=== PATIENT | male | born 1995 ===

== ENCOUNTER 2019-08-01 14:59 | Emergency (ER) | payer MEDICAID ==
[~2019-08-01] VITALS: Ht 172.7 cm; Wt 68.0 kg
[2019-08-01 15:21] VITALS: BP 131/72
[2019-08-01 16:26] LABS: ANION GAP 6 mmol/L (5-15); BLOOD UREA NITROGEN 16 mg/dL (7-18); CALCIUM 9.2 MG/DL (8.5-10.1); CARBON DIOXIDE 28 MMOL/L (21-32); CHLORIDE 103 MMOL/L (98-107); CREATININE 0.9 MG/DL (0.55-1.30); POTASSIUM 4.9 MMOL/L (3.5-5.1); SODIUM 137 MMOL/L (136-145)
[2019-08-01 16:29] LABS: BASOPHILS % (AUTO) 0.9 % (0.0-2.0); EOSINOPHILS % (AUTO) 1.5 % (0.0-3.0); HEMATOCRIT 43.3 % (42.0-52.0); HEMOGLOBIN 15.8 G/DL (14.2-18.0); LYMPHOCYTES % (AUTO) 38.2 % (20.0-45.0); MEAN CORPUSCULAR VOLUME 82 FL (80-99); MONOCYTES % (AUTO) 13.4 % (1.0-10.0); PLATELET COUNT 298 K/UL (150-450); RED BLOOD COUNT 5.25 M/UL (4.70-6.10); RED CELL DISTRIBUTION WIDTH 9.5 % (11.6-14.8); WHITE BLOOD COUNT 8.1 K/UL (4.8-10.8)
[2019-08-01 16:30] LABS: ALANINE AMINOTRANSFERASE 58 U/L (12-78); ALBUMIN 3.9 G/DL (3.4-5.0); ALBUMIN/GLOBULIN RATIO 1.1 (1.0-2.7); ALKALINE PHOSPHATASE 77 U/L (46-116); ASPARTATE AMINO TRANSFERASE 25 U/L (15-37); BILIRUBIN,TOTAL 0.7 MG/DL (0.2-1.0)
--- NOTE | 2019-08-01 16:45 | Emergency Room Report ---
History of Present Illness General Chief Complaint: Skin Rash/Abscess Source: Patient Present Illness HPI 23-year-old male presents with pain to his right fifth digit after spilling crystal meth onto it 3 days ago. His right third digit is mildly affected as well. He reports that he has been to 3 different ERs and has been given antibiotics, unsure of which antibiotic, but the swelling is getting worse. He denies any fever or vomiting. He admits to last using crystal meth earlier today. Allergies: Coded Allergies: No Known Allergies (Unverified , 08/01/19) Patient History Past Medical History: see triage record Reviewed Nursing Documentation: PMH: Agreed; PSxH: Agreed Nursing Documentation-PMH Past Medical History: No History, Except For Review of Systems All Other Systems: negative except mentioned in HPI Physical Exam Vital Signs Date Time Temp Pulse Resp B/P (MAP) Pulse Ox O2 Delivery O2 Flow Rate FiO2 08/01/19 15:10 97.9 78 19 131/72 (91) 99 Room Air Sp02 EP Interpretation: reviewed, normal General Appearance: no apparent distress, alert, GCS 15, non-toxic Head: normocephalic, atraumatic ENT: hearing grossly normal, normal voice Neck: full range of motion, supple/symm/no masses Respiratory: lungs clear, normal breath sounds, speaking full sentences Cardiovascular #1: regular rate, rhythm Cardiovascular #2: 2+ radial (R), 2+ radial (L) Musculoskeletal: normal range of motion, gait/station normal, other Neurologic: alert, motor strength/tone normal, oriented x3, sensory intact, responsive, speech normal Psychiatric: judgement/insight normal, mood/affect normal Skin: other - erythema and swelling to the right fifth digit, and mildly to dorsal proximal aspect of right 3rd digit, FROM, able to fully extend and flex the fingers, no evidence of abscess, no drainage, neurovascularly intact Lymphatic: no adenopathy Medical Decision Making PA Attestation Dr. Peñaloza is my supervising physician whom patient management and care has been discussed with. Diagnostic Impression: Primary Impression: Cellulitis Qualified Codes: L03.90 - Cellulitis, unspecified Additional Impression: Methamphetamine abuse ER Course Pt. presents to the ED c/o cellulitis to right fifth digit after exposure to crystal meth. Ddx considered but are not limited to cellulitis, abscess, necrotizing fasciitis , tenosynovitis, compartment syndrome, septic joint, osteomyelitis. Vital signs: are WNL, pt. is afebrile H&PE are most consistent with cellulitis. Full ROM, soft compartments, no evidence of tenosynovitis, compartment syndrome, or septic joint at this time. ORDERS: CBC, CMP, CRP WNL. No elevation of WBC count. ED INTERVENTIONS: Given 600 mg PO Ibuprofen for pain and 600 mg IM Clindamycin. DISCHARGE: I had an extensive conversation with the patient regarding his treatment plan. Admission was advised due to failed outpatient therapy, however patient did not want to stay in the hospital at this time. Patient was given IM Clindamycin and advised to take pictures and keep a close eye on his finger and return to the ED in 1-2 days for recheck or sooner if symptoms worsen or he develops fever. My supervising physician, Dr. Peñaloza, also personally examined the patient and agreed with plan. Patient verbalized understanding and agreed. At this time pt. is stable for d/c to home. Will provide printed patient care instructions, and prescriptions for Clindamycin and Ibuprofen. Care plan and follow up instructions have been discussed with the patient prior to discharge. Laboratory Tests Test 08/01/19 15:50 White Blood Count 8.1 K/UL (4.8-10.8) Red Blood Count 5.25 M/UL (4.70-6.10) Hemoglobin 15.8 G/DL (14.2-18.0) Hematocrit 43.3 % (42.0-52.0) Mean Corpuscular Volume 82 FL (80-99) Mean Corpuscular Hemoglobin 30.1 PG (27.0-31.0) Mean Corpuscular Hemoglobin Concent 36.5 G/DL (32.0-36.0) H Red Cell Distribution Width 9.5 % (11.6-14.8) L Platelet Count 298 K/UL (150-450) Mean Platelet Volume 4.7 FL (6.5-10.1) L Neutrophils (%) (Auto) 46.0 % (45.0-75.0) Lymphocytes (%) (Auto) 38.2 % (20.0-45.0) Monocytes (%) (Auto) 13.4 % (1.0-10.0) H Eosinophils (%) (Auto) 1.5 % (0.0-3.0) Basophils (%) (Auto) 0.9 % (0.0-2.0) Sodium Level 137 MMOL/L (136-145) Potassium Level 4.9 MMOL/L (3.5-5.1) Chloride Level 103 MMOL/L (98-107) Carbon Dioxide Level 28 MMOL/L (21-32) Anion Gap 6 mmol/L (5-15) Blood Urea Nitrogen 16 mg/dL (7-18) Creatinine 0.9 MG/DL (0.55-1.30) Estimate Glomerular Filtration Rate > 60 mL/min (>60) Glucose Level 88 MG/DL (74-106) Calcium Level 9.2 MG/DL (8.5-10.1) Total Bilirubin 0.7 MG/DL (0.2-1.0) Aspartate Amino Transferase (AST) 25 U/L (15-37) Alanine Aminotransferase (ALT) 58 U/L (12-78) Alkaline Phosphatase 77 U/L (46-116) C-Reactive Protein, Quantitative 1.6 mg/dL (0.00-0.90) H Total Protein 7.5 G/DL (6.4-8.2) Albumin 3.9 G/DL (3.4-5.0) Globulin 3.6 g/dL Albumin/Globulin Ratio 1.1 (1.0-2.7) Last Vital Signs Date Time Temp Pulse Resp B/P (MAP) Pulse Ox O2 Delivery O2 Flow Rate FiO2 08/01/19 16:24 97.9 08/01/19 15:21 84 19 131/72 99 Room Air Disposition: HOME, SELF-CARE Condition: Stable Scripts Clindamycin Hcl (CLINDAMYCIN HCL) 300 Mg Capsule 300 MG ORAL FOUR TIMES A DAY for 10 Days, #40 CAP Prov: Елена Canela N. P.ADorothy 08/01/19 Ibuprofen* (MOTRIN*) 600 Mg Tablet 600 MG ORAL Q6H PRN for For Pain, #30 TAB Prov: Елена Canela N. P.A. 08/01/19 Referrals: NOT CHOSEN JASMINE/,REFERRING (PCP) Елена Canela N. P.Omar Aug 01, 2019 16:45
[2019-08-01] MEDS ORDERED: CLINDAMYCIN HC300 MG ORAL (18:27)
[2019-08-01] MEDS ORDERED: IBUPROFEN600 MG ORAL (18:27)
[2019-08-01 18:33] VITALS: BP 125/84
== END 2019-08-01 18:36 | disposition home or self-care (01) ==
LOC: EMR 16:24
DX: L03.011 Cellulitis of right finger (principal); F15.10 Other stimulant abuse, uncomplicated
CPT/HCPCS: 36415; 80053; 85025; 86140; 87040; Z7502; 99283

== ENCOUNTER 2020-10-20 22:04 | Emergency (ER) | payer MEDICAID ==
[~2020-10-20] VITALS: Ht 172.7 cm; Wt 68.9 kg
[~2020-10-20 22:04] MED LIST: CLINDAMYCIN HC300 MG ORAL; IBUPROFEN600 MG ORAL
[2020-10-20 22:36] VITALS: BP 119/62
--- NOTE | 2020-10-20 22:37 | NUR ---
ED Nurse Note: Marcella walked into ED c/o right upper mouth pain onset for the past 3 days now, patient staes that there is a hole towards the back right of his mouth. states that there has been an increased sweling of lymph nodes mainly towards the right side of his neck. rates his pain a 7/10, states that for the past couple days that he has been swallowing an increasing amount of pus.
[2020-10-20] MEDS ORDERED: Lidocaine 2% Visc 15ml soln ORAL ONE (22:45)
[2020-10-20] MEDS ORDERED: LIDOCAINE VISC100 ML ORAL (22:58)
[2020-10-20] MEDS ORDERED: AUGMENTIN 875-1 EAC1 ORAL (22:58)
[2020-10-20 23:05] VITALS: BP 125/65
--- NOTE | 2020-10-20 23:05 | NUR ---
ER DISCHARGE NOTE: Patient is cleared to be discharged per ERMD, pt is aox4, on room air, with stable vital signs. pt was given dc and prescription instructions, pt was able to verbalize understanding, pt id band removed without complications. pt is able to ambulate with steady gait. pt took all belongings.
--- NOTE | 2020-10-21 01:39 | Emergency Room Report ---
History of Present Illness General Chief Complaint: Pain Source: Patient Present Illness HPI Patient is a 25-year-old male presents for increased sore throat. Onset of symptoms approximate 4 days ago. Reports having some nonproductive cough. Increased tonsillar swelling. States that he had had some drainage from the right side of his mouth. Denies any fever. Reports having some swelling to the right side of his neck. Denies any difficulty opening his mouth. 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 COVID-19 Screening: Negative COVID-19 COVID-19 Testing Source: [facility] Patient History Past Medical History: see triage record Reviewed Nursing Documentation: PMH: Agreed; PSxH: Agreed Nursing Documentation-PMH Past Medical History: No History, Except For Review of Systems All Other Systems: negative except mentioned in HPI Physical Exam Vital Signs Date Time Temp Pulse Resp B/P (MAP) Pulse Ox O2 Delivery O2 Flow Rate FiO2 10/20/20 22:31 99.3 95 18 119/62 (81) 97 Room Air General Appearance: well appearing, no apparent distress, alert, GCS 15 Head: normocephalic, atraumatic ENT: hearing grossly normal, normal voice Neck: full range of motion, supple Respiratory: no respiratory distress, speaking full sentences Musculoskeletal: no calf tenderness Neurologic: normal gait Psychiatric: mood/affect normal Skin: no rash Medical Decision Making Diagnostic Impression: Primary Impression: Tonsillitis Additional Impression: Oral ulcer Last Vital Signs Date Time Temp Pulse Resp B/P (MAP) Pulse Ox O2 Delivery O2 Flow Rate FiO2 10/20/20 22:36 99.3 97 18 119/62 97 Room Air Disposition: HOME, SELF-CARE Scripts Lidocaine HCl 2% Viscous (Lidocaine HCl 2% Viscous) 100 Ml Solution 15 ML ORAL QID, #100 ML Prov: Beny Vsos MD 10/20/20 Amoxicillin/Potassium Clav 875-125* (AUGMENTIN 875-125 TABLET*) 1 Each Tablet 1 TAB ORAL TWICE A DAY, #14 TAB Prov: Beny Voss MD 10/20/20 Referrals: NOT CHOSEN [facility]/MD,REFERRING (PCP) Patient Instructions: Tonsillitis Additional Instructions: Follow up with your doctor for recheck. Return if worse. Beny Voss MD Oct 21, 2020 01:39
== END 2020-10-20 23:05 | disposition home or self-care (01) ==
LOC: EMR 22:19
DX: J03.90 Acute tonsillitis, unspecified (principal); K12.1 Other forms of stomatitis
CPT/HCPCS: 96372; J1100; Z7502; 99283